=== PATIENT | male | born 1970 ===

== ENCOUNTER 2017-03-31 11:31 | Emergency (ER) | payer OTHER ==
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
== END 2017-03-31 15:23 | disposition home or self-care (01) ==
LOC: UCEAST 11:31
DX: S09.92XA Unspecified injury of nose, initial encounter (principal); W50.0XXA Accidental hit or strike by another person, initial encounter; Y93.9 Activity, unspecified; Y92.9 Unspecified place or not applicable; Y99.9 Unspecified external cause status; Z87.81 Personal history of (healed) traumatic fracture
CPT/HCPCS: 12001; 70160; 90471; 99202; G0463